=== PATIENT | male | born 1995 | race Hispanic/Latino ===

== ENCOUNTER 2021-09-15 14:29 | Emergency (ER) | payer OTHER ==
[~2021-09-15] VITALS: Ht 170.2 cm; Wt 70.3 kg
[2021-09-15 14:30] VITALS: BP 118/74
[2021-09-15] MEDS ORDERED: CEFTRIAXONE 1G VIAL IM STA (15:19)
[2021-09-15] MEDS ORDERED: TETANUS/DIPHTHERIA TOXOID [ADULT] 0.5 ML VIAL IM STA (15:20)
[2021-09-15] MEDS ORDERED: CEPH500B PO (16:03)
== END 2021-09-15 16:33 | disposition home or self-care (01) ==
LOC: EDH 14:29
DX: S91.332A Puncture wound without foreign body, left foot, initial encounter (principal); W54.0XXA Bitten by dog, initial encounter; Y93.89 Activity, other specified; Y92.89 Other specified places as the place of occurrence of the external cause; Y99.8 Other external cause status
CPT/HCPCS: 73630; 90471; 90714; 96372; J0696

== ENCOUNTER 2022-07-24 14:32 | Emergency (ER) | payer OTHER ==
[~2022-07-24] VITALS: Ht 170.2 cm; Wt 74.8 kg
[~2022-07-24 14:32] MED LIST: CEPH500B PO
[2022-07-24 14:33] VITALS: BP 130/96
[2022-07-24] MEDS ORDERED: KETOROLAC 30MG VIAL (30MG/ML) IM SCH (16:00)
[2022-07-24 16:29] LABS: BASOPHILS % (AUTO) 0.2 % (0.0-5.0); EOSINOPHILS % (AUTO) 1.2 % (0.0-8.0); HEMATOCRIT 44.4 % (42-54); LYMPHOCYTES % (AUTO) 15.1 % (21.0-51.0); MEAN CORPUSCULAR HEMOGLOBIN 28.6 pg (27.0-33.0); MEAN CORPUSCULAR HGB CONC 33.8 g/dL (32.0-36.0); MEAN CORPUSCULAR VOLUME 84.6 fL (79-99); MONOCYTES % (AUTO) 8.7 % (3.0-13.0); NEUTROPHILS % (AUTO) 74.6 % (40.0-77.0); PLATELET COUNT (AUTO) 238 K/uL (130-400); RED BLOOD CELL COUNT(AUTO) 5.25 MIL/uL (4.50-6.20); RED CELL DISTRIBUTION WIDTH 13.1 % (11.0-15.5); WHITE BLOOD COUNT (AUTO) 13.6 K/uL (4.8-10.8)
[2022-07-24 16:55] LABS: CREATININE 1.1 mg/dL (0.5-1.5); POTASSIUM 3.9 mmol/L (3.5-5.1)
[2022-07-24 17:06] LABS: ALBUMIN 4.6 g/dL (3.5-5.0); TOTAL PROTEIN, SERUM 8.8 g/dL (6.0-8.3)
[2022-07-24] MEDS ORDERED: IOHEXOL-350 50ML VIAL IV ONE (17:16)
[2022-07-24] MEDS ORDERED: AMOX1TAB16 PO (18:41)
[2022-07-24] MEDS ORDERED: IBUP-2077 PO (18:41)
== END 2022-07-24 18:57 | disposition home or self-care (01) ==
LOC: EDH 14:32
DX: K02.9 Dental caries, unspecified (principal)
CPT/HCPCS: 99285; 70487; 80053; 85025; 36415; 96372; J1885; Q9967

== ENCOUNTER 2024-09-18 22:12 | Emergency (ER) | payer SELFPAY ==
[~2024-09-18] VITALS: Ht 170.2 cm; Wt 79.4 kg
[~2024-09-18 22:12] MED LIST changes: +AMOX1TAB16 PO; +IBUP-2077 PO
--- NOTE | 2024-09-18 22:41 | ERN ---
ED Note History of Present Illness Stated Complaint: C/O LACERATION TO LEFT ELBOW Chief Complaint: Laceration/Avulsion Time Seen by MD: 22:14 Time Seen by Midlevel: 22:14 Dictation: The patient is a 28-year-old male with no past medical history who presents to the emergency department with a laceration to his left elbow onset prior to arrival. Patient reports he accidentally hit his elbow with a metal tin. Reports up-to-date with tetanus vaccine in 2021 after he got bitten by a dog. Allergies: Coded Allergies: No Known Drug Allergies (Unverified Allergy, Unknown, 09/15/21) Home Meds Active Scripts Ibuprofen (Ibuprofen 800 mg Tab) 800 Mg Tab, 800 MG PO Q6H PRN for PAIN, #30 TAB Prov:TUAN DUFF V MONKEY TRAINER 07/24/22 Amoxicillin/Potassium Clav (Amox Tr-K Clv 875-125 mg Tab) 1 Each Tablet, 1 EACH PO BID for 10 Days, #20 TAB Prov:TUAN DUFF V MONKEY TRAINER 07/24/22 Cephalexin Monohydrate (Keflex) 500 Mg Cap, 500 MG PO BID for 7 Days, #14 CAP Prov:MT SCHNEIDER MD 09/15/21 Past Medical History Past Medical History: No Pertinent History Surgical History: None Social History: Negative RN Note Reviewed/Agreed w/PFSH: Yes Review of System Dictation Constitutional: Negative for fever,chills, and weight loss Eyes: Negative for injury, pain,redness, and discharge ENT: Negative for injury,pain or swelling Cardiovascular: Negative for chest pain, palpitations, and edema Respiratory: Negative for shortness of breath, cough, and wheezing, Abdomen/GI: Negative for abdominal pain, nausea, vomiting, diarrhea, and constipation Back: Negative for injury and pain : Negative for injury, bleeding and discharge MS/Extremity: Negative for injury and deformity Skin: Positive for laceration to left elbow Neuro: Negative for headache, weakness, numbness, tingling, and seizure Psych: Negative for suicide ideation, homicidal ideation, and hallucinations Initial Vital Sign VS Vital Signs Date Time Temp Pulse Resp B/P (MAP) Pulse Ox O2 Delivery O2 Flow Rate FiO2 09/18/24 22:14 67 20 120/71 98 Room Air Physical Exam Dictation Vital Signs reviewed General Appearance: Alert, oriented x 3, no acute distress, well developed, nourished. Head and Face: non-traumatic. Eyes: PERRL, pink conjunctivas, eyelid no trauma, anterior chamber with arcus s enilis. Ears: Pinnas intact and no signs of trauma or erythema ear canals clear and no discharge TM no erythema Nose: No discharge, no bleeding. Oropharynx: Mouth normal, tongue pink. pharynx clear,no erythema, tonsils no exudates, no abscesses noted, mucous membrane moist Neck: Supple, non-tender, no thyromegaly, no masses, no JVD, no bruits Breast:Deferred Chest:No tenderness, no crepitus, no paradoxical movement, no retractions Lungs:Clear, well-ventilated, symmetric, no rales, no wheezing, no rhonchi, no stridor, good breath sounds bilaterally Heart: Regular rate, regular rhythm, no murmur, no gallops Vascular: no peripheral edema, Abdomen: Soft, positive bowel sounds, nondistended, no guarding, nontender, no rebound, no masses no hepatomegaly, no splenomegaly, no Yang's sign, no hernias. Rectal: Deferred Genital: Deferred Neurological: Normal speech, motor function intact, sensory function intact Musculoskeletal: Neck nontender, full range of motion, back nontender, full range of motion, Extremities: nontender, full range of motion Skin: Color pink, dry, no turgor, no rash, no abrasions, no contusions. 3 cm laceration to left elbow, superficial, minimal bleeding, no bone exposure, full range of motion Lymphatic: Deferred Results (Laboratory/Radiology) Labs Reviewed?: Yes ED Course ED Course Orders Procedure Category Date Status Time Lidocaine Hcl 1% 20ml PHA 09/18/24 Complete Vial (Lidocaine Hc 22:30 Neomy PHA 09/18/24 Complete Sulf/Bacitra/Polymyxin 22:30 Current Medications Medications (Trade) Dose Ordered Sig/Chong Route PRN Reason Start Time Stop Time Status Last Admin Dose Admin Lidocaine HCl (Lidocaine HCl 1% 20ml Vial) 10 ml ONCE ONCE INJ 09/18/24 22:30 09/18/24 22:31 DC Neomycin/ Polymyxin/ Bacitracin (Triple Antibiotic Ointment) 1 appl ONCE ONCE TP 09/18/24 22:30 09/18/24 22:31 DC Vital Signs Date Time Temp Pulse Resp B/P (MAP) Pulse Ox O2 Delivery O2 Flow Rate FiO2 09/18/24 22:14 67 20 120/71 98 Room Air Medical Decision Making MDM The patient is a 28-year-old male with no past medical history who presents to the emergency department with a laceration to his left elbow onset prior to arrival. Patient reports he accidentally hit his elbow with a metal tin. Reports up-to-date with tetanus vaccine in 2021 after he got bitten by a dog. Patient with a a 3 cm laceration to left elbow, superficial, no bone exposure, m inimal bleeding. Laceration was repaired. Patient tolerated well. Patient will be discharged and follow up with PCP. Differential diagnosis: Laceration, abrasion, skin tear Need for hospitalization: Patient does not meet criteria for hospitalization. There are no social concerns with this patient. Procedure Procedure Dictation: Time and Date Performed: 09/18/2024 2230 INDICATION: Laceration Location: Left elbow Informed consent was obtained. Pre-procedure time out was obtained. Anesthetic: 1% lidocaine Manual prep of skin and wound was done with hibiclens. Foreign Body: NO foreign bodies were identified. Length Repaired: 3 cm Suture used: Ethilon three # of simple sutures: Three Aseptic technique was used during the entire procedure. Wound Location: upper extremity Wound Length (cm): 3 Wound's Depth, Shape: superficial Wound Explored: clean Irrigated w/ Saline (ccs): 50 Betadine Prep?: Yes Anesthesia: 1% Lidocaine Volume Anesthetic (ccs): 7 Wound Repaired With: sutures Suture Size/Type: 3:0, nylon Number of Sutures: 3 Layer Closure?: Yes Sterile Dressing Applied?: Yes DX & DISP Disposition: Discharge Departure Impression: Primary Impression: Laceration of left elbow Condition: Stable Additional Instructions: Keep your stitches clean and dry. Do not put your stitches under water, such as in a bath, pool, or whyte. This can slow healing and raise your chance of getting an infection. Avoid activities or sports that could hurt the area of your stitches for 1-2 weeks. You should call your doctor if you develop any fever, redness or swelling around the cut, or pus draining from the cut. Your sutures will need to be removed in 7-10 days. FOLLOW-UP WITH PRIMARY CARE PROVIDER IN 1 TO 2 DAYS. TAKE MEDICATIONS DIRECTED HERE IN THE EMERGENCY ROOM. OKAY TO CONTINUE HOME MEDICATIONS UNLESS OTHERWISE DISCUSSED DURING YOUR VISIT IN THE EMERGENCY ROOM TODAY. RETURN TO YOUR NEAREST EMERGENCY ROOM IF SYMPTOMS WORSEN OR IF THERE IS NO IMPROVEMENT. CALL 911 IF YOU NEED IMMEDIATE ASSISTANCE. TAKE TYLENOL [id number] NEEDED AND IF NO CONTRAINDICATIONS ARE PRESENT. INCREASE ORAL HYDRATION. A WOUND CULTURE OR URINE CULTURE WAS ORDERED HERE IN THE EMERGENCY ROOM DEPARTMENT PLEASE FOLLOW-UP WITH PRIMARY CARE PROVIDER AND ADVISE THEM TO GET REPEAT PORTS FROM OUR FACILITY. IF YOU HAD ANY TOMMY WRAP/SPLINTS THAT WERE APPLIED HERE, PLEASE DO NOT REMOVE THEM UNTIL YOU SEE YOUR PRIMARY CARE OR SPECIALTY. Referrals: NONE (PCP) Time of Disposition: 22:46 I have reviewed the case, and I agree with, Diagnosis and Plan CUAUHTEMOC LUIS MONKEY TRAINER Sep 18, 2024 22:41
[2024-09-18 23:00] VITALS: BP 121/71; PULSE 71; RESP 18; TEMP 98.3; O2SAT 98
[2024-09-18] MEDS: LIDOCAINE HCL 1% 20 ML VIAL INJ ONE (23:03)
[2024-09-18] MEDS: NEOMY SULF/BACITRA/POLYMYXIN B 1 EACH PACKET TP ONE (23:04)
== END 2024-09-18 23:09 | disposition home or self-care (01) ==
LOC: EDH 22:12
DX: S51.012A Laceration without foreign body of left elbow, initial encounter (principal); W22.8XXA Striking against or struck by other objects, initial encounter; Y93.89 Activity, other specified; Y92.89 Other specified places as the place of occurrence of the external cause; Y99.8 Other external cause status
CPT/HCPCS: 12032; 99284